=== PATIENT | male | born 1945 | race Caucasian/White ===

== ENCOUNTER 2022-04-25 13:45 | Emergency (ER) | payer MEDICARE, SELFPAY ==
[2022-04-25] VITALS (10 sets, daily range): BP systolic 116–148; BP diastolic 53–97; PULSE 73–86; RESP 18–20; TEMP 37.2; O2SAT 92–97; BMI 37.2; BMI 37.1
--- NOTE | 2022-04-25 14:18 | EXP.UTC ---
Discharge Plan Disposition Patient Disposition: Home, Self-Care Condition: Fair Prescriptions Prescriptions: New cefdinir 300 mg capsule 300 mg PO BID 10 Days Qty: 20 0RF Referrals Follow up/Referrals: Provider,Referral, [Primary Care Provider] - See instructions Clinical Impressions Clinical Impression: Asthma exacerbation in COPD, Bacterial lobar pneumonia Discharge ED Provider: Kali Byrnes [facility] [place] General Chief complaint: Weakness Stated complaint: Fever, cough, dizzy Mode of Arrival: Ambulatory Source of Information: Patient Limitations: No Limitations Time Seen by Provider: 04/25/22 14:18 Description of Symptoms (Recalled from Triage Doc. by RN): PATIENT C/O COUGH, CONGESTION, HEADACHE, SORE THROAT AND DIZZINESS HEENT Symptoms (Recalled from RN notes): Yes Resp Symptoms (Recalled from RN notes): Yes Skin Symptoms (Recalled from RN notes): No MS Symptoms (Recalled from RN notes): No Functional Status (Recalled from RN notes): WNL History of Present Illness Provider Complaint: Patient states that he has been sick for 2 weeks and states that he hasnt been out of the bed States that he got up a few days ago and fell and was unable to get back up so his son had to come and help him up States that he hasnt been eating but has been drinking States that his head has been thumping and he just does not feel well States that she started to bring him to the hospital a few days ago but didnt and today he was still weak, having cough, headache, dizzy and not feeling well Related Data Previous Rx's Medication Instructions Recorded cefdinir 300 mg capsule 300 mg PO BID 10 days #20 caps 04/25/22 Allergies Allergy/AdvReac Type Severity Reaction Status Date / Time No Known Allergies Allergy Verified 04/25/22 14:17 Worker's Comp Is this a Worker's Comp case?: No [facility] Disclaimer: The information contained in this section may have been updated after the patient was seen, as this information can be updated by other users. Medical History (Updated 04/25/22 @ 17:49 by Kali Byrnes MD) Diabetes mellitus, type 2 Hyperlipidemia Hypertension Migraine Surgical History (Updated 04/25/22 @ 14:16 by Alicia Krause RN) History of tonsillectomy History of tympanostomy tube placement Total knee replacement status Social History (Updated 04/25/22 @ 17:51 by Kali Byrnes MD) Smoking Status: Unknown if ever smoked alcohol intake: never current occupational status: other Travel in the last 8 weeks: None ROS Obtained: Yes All systems reviewed & no additional complaints except as documented and Yes Systems reviewed as appropriate & no additional complaints except as documented Constitutional Constitutional: Reports system reviewed and no additional complaints, except as documented, Reports as per HPI, Reports fever(s), Reports headache(s), Reports poor appetite and Reports weakness ENT Ears, Nose, Mouth, and Throat: Reports system reviewed and no additional complaints, except as documented, Reports as per HPI, Reports dizziness and Reports headache(s) Cardiovascular Cardiovascular: Reports system reviewed and no additional complaints, except as documented, Reports as per HPI and Denies chest pain Respiratory Respiratory: Reports system reviewed and no additional complaints, except as documented, Reports as per HPI, Reports shortness of breath, Reports chest congestion (at times will cough up mucous) and Reports cough Neurologic Neurologic: Reports system reviewed and no additional complaints, except as documented, Reports as per HPI, Reports dizziness, Reports headache(s) and Reports weakness Physical Exam General General appearance: alert and in no apparent distress Expanded ENT Exam Nose exam: Present other (reports yellow mucous from his nose) Respiratory Respiratory exam: Present wheezes; Absent respiratory distress Cardiovascular Cardiovascular exam: Present regular rate a
--- NOTE | 2022-04-25 14:26 | XR_ITS ---
FINAL REPORT CLINICAL HISTORY: cough/congestion FINDINGS: TWO-VIEW CHEST The heart size is normal. The mediastinum is normal. There are bilateral pulmonary opacities consistent with bilateral pneumonia. There are moderate degenerative changes of the thoracic spine. There is no pneumothorax. IMPRESSION: Bilateral pneumonia. Reviewed, Interpreted and Dictated by Jordan Barrera III, MD Transcribed by Norma Poole Authenticated and [facility]
[2022-04-25 14:27] LABS: UTC Strep Screen (Rapid) Negative (Negative)
[2022-04-25 14:28] LABS: UTC Influenza A Antigen Negative (Negative); UTC Influenza B Antigen Negative (Negative)
--- NOTE | 2022-04-25 14:40 | PC.NURSE ---
pt sent to ER from [facility]
--- NOTE | 2022-04-25 14:59 | ECG_ITS ---
APPROVED REPORT Exam: Resting ECG HR:79 bpm ECG Measurements Heart Rate 79 AXES WA 180 P 65 QRSd 101 QRS 65 QT 393 T 18 QTc 428 Conclusion SINUS RHYTHM NORMAL ECG UNCONFIRMED REPORT Electronically signed by : Manpreet Cancino MD 04/27/2022 08:54:41
[2022-04-25 15:26] LABS: Chloride 101 mmol/L (98-107); Potassium 3.4 mmoL/L (3.5-5.1); Sodium 136 mmol/L (136-145)
[2022-04-25 15:28] LABS: Alanine Aminotransferase 24 U/L (12-78); Aspartate Amino Transferase 35 U/L (17-59); Blood Urea Nitrogen 18 mg/dl (9-20); Creatinine Clearance Estimated 88 mL/min (50-200); Estimated Glomerular Filt Rate 65 ml/min (>60); GFR (African American) 79 ML/MIN (>60)
[2022-04-25 15:29] LABS: Albumin/Globulin Ratio 1.1 (1.1-1.8); Alkaline Phosphatase 94 U/L (38-126); Anion Gap 16.4 mEq/L (5-15); Bilirubin,Total 0.8 mg/dl (0.2-1.3); Carbon Dioxide 22 mmol/L (22.0-30.0); Globulin 3.5 g/dL (1.3-3.2); Glucose 140 mg/dl (74-100); Total Protein,Serum 7.5 g/dl (6.3-8.2)
[2022-04-25 15:39] LABS: Basophils # 0.1 K/mm3 (0-0.2); Basophils % 0.7 % (0.1-2.0); Eosinophils # 0.1 K/mm3 (0.0-0.4); Eosinophils % 0.4 % (0.1-12.0); Hematocrit 43.7 % (42.0-52.0); Hemoglobin 14.4 g/dL (14.1-18.0); Lymphocytes # 0.8 K/mm3 (0.7-4.5); Lymphocytes % 5.7 % (10-50); Mean Corpuscular HGB Conc 32.8 g/dL (31.8-35.4); Mean Corpuscular Hemoglobin 30.1 pg (27.0-31.2); Mean Corpuscular Volume 91.7 fl (80-94); Mean Platelet Volume 9.5 fl (7.4-10.4); Monocytes # 0.6 K/mm3 (0.1-1.0); Monocytes % 4.3 % (1.7-9.3); Neutrophils # 12.8 K/mm3 (1.8-7.8); Platelet Count 212 K/mm3 (142-424); Red Blood Count 4.77 M/mm3 (4.60-6.20); Red Cell Distribution Width 15.2 % (11.5-17.5); White Blood Count 14.4 K/mm3 (4.8-10.8)
--- NOTE | 2022-04-25 15:40 | HMH.EDGENADL ---
Discharge Plan Disposition Patient Disposition: Home, Self-Care Condition: Fair Prescriptions Prescriptions: New cefdinir 300 mg capsule 300 mg PO BID 10 Days Qty: 20 0RF Referrals Follow up/Referrals: Provider,MD Humberto [Primary Care Provider] - See instructions Clinical Impressions Clinical Impression: Asthma exacerbation in COPD, Bacterial lobar pneumonia Discharge ED Provider: Kali Byrnes General Adult HPI General Chief complaint: Weakness Stated complaint: Fever, cough, dizzy Time Seen by Provider: 04/25/22 14:18 Mode of Arrival: Ambulatory Source of Information: Patient Limitations: No Limitations Description of Symptoms (Recalled from ER Triage Doc. by RN): c/o fever, PELAEZ, fell a couple times over the last two weeks due to weakness, denies hitting his head or other injuries. History of Present Illness HPI narrative: This is a 76-year-old male with history of COPD, CAD, hypertension, GIBSON who is presenting with shortness of breath. Patient states that shortness of breath been progressive over the past 2 weeks. He has had cough productive of yellow sputum over the past 2 days and associated wheezing that started today, so he came to the ED for further evaluation. Today he also had a fever of 101.6 ?F measured at home. Initially went to urgent care at [facility], but was transferred over to the ED due to further need for work-up. Patient denies chest pain, nausea, vomiting, PND, orthopnea, lower extremity swelling, abdominal pain, back pain, flank pain, urinary or bowel symptoms. He also has no neurologic deficits. Shortness of breath is exertional and worsening is coughing. He has not noticed anything that makes it better, but is on CPAP at home while sleeping and that has not seemed to help. Related Data Previous Rx's Medication Instructions Recorded cefdinir 300 mg capsule 300 mg PO BID 10 days #20 caps 04/25/22 Allergies Allergy/AdvReac Type Severity Reaction Status Date / Time No Known Allergies Allergy Verified 04/25/22 14:17 [facility] Disclaimer: The information contained in this section may have been updated after the patient was seen, as this information can be updated by other users. Medical History (Updated 04/25/22 @ 17:49 by Kali Byrnes MD) Diabetes mellitus, type 2 Hyperlipidemia Hypertension Migraine Surgical History (Updated 04/25/22 @ 14:16 by Alicia Krause RN) History of tonsillectomy History of tympanostomy tube placement Total knee replacement status Social History (Updated 04/25/22 @ 14:17 by Alicia Krause RN) Smoking Status: Unknown if ever smoked alcohol intake: never current occupational status: other Travel in the last 8 weeks: None ROS Obtained: Yes All systems reviewed & no additional complaints except as documented Physical Exam General General appearance: alert and in no apparent distress Head Head exam: atraumatic, normocephalic and normal inspection Eye Eye exam: Present normal appearance, PERRL and EOMI ENT ENT exam: Present normal exam, normal oropharynx, mucous membranes moist, TM's normal bilaterally and normal external ear exam Neck Neck exam: Present normal inspection, full ROM and trachea midline; Absent meningismus or lymphadenopathy Chest Chest inspection: Present normal inspection and symmetric chest wall rise; Absent tenderness Respiratory Respiratory exam: Present wheezes (Right worse than left), accessory muscle use and prolonged expiratory phase; Absent respiratory distress or stridor Cardiovascular Cardiovascular exam: Present regular rate and normal rhythm; Absent JVD Abdominal Exam Abdominal exam: Present soft and normal bowel sounds; Absent distention, tenderness or guarding Extremities Exam Extremities exam: Present normal inspection, full ROM and normal capillary refill; Absent tenderness, edema or calf tenderness Back Exam Back exam: Present normal inspection; Absent tenderness
[2022-04-25 15:42] LABS: MANUAL DIFFERENTIAL MANUAL DIFFERENTIAL (MANUAL DIFF)
--- NOTE | 2022-04-25 16:50 | PC.NURSE ---
MARJAN PENN at
[2022-04-25 17:36] LABS: Lymphocytes % 10 % (10-50); Monocytes % 2 % (2-9); Neutrophils % 88 % (42-76); Platelet Estimate Normal; RBC Morphology Normal; Total Cells Counted 100
== END 2022-04-25 18:06 | disposition home or self-care (01) ==
LOC: UTC 14:35 → ER 14:40
PROVIDERS: Nurse Practitioner; Emergency Provider Emergency Medicine
DX: J18.9 Pneumonia, unspecified organism (principal); J44.1 Chronic obstructive pulmonary disease with (acute) exacerbation; R42 Dizziness and giddiness; R50.9 Fever, unspecified; R53.1 Weakness; D72.829 Elevated white blood cell count, unspecified; I10 Essential (primary) hypertension; I25.10 Atherosclerotic heart disease of native coronary artery without angina pectoris; E78.5 Hyperlipidemia, unspecified; E11.9 Type 2 diabetes mellitus without complications; G47.33 Obstructive sleep apnea (adult) (pediatric); G43.909 Migraine, unspecified, not intractable, without status migrainosus; Z88.8 Allergy status to other drugs, medicaments and biological substances; Z96.659 Presence of unspecified artificial knee joint
CPT/HCPCS: 71046; 80053; 85007; 85025; 87804; 87880; 93005; 96374; 96375; 99285; J0696

== ENCOUNTER 2023-07-24 18:32 | Emergency (ER) | payer MEDICARE, SELFPAY ==
[2023-07-24 19:02] VITALS: BP 146/82; PULSE 93; RESP 19; TEMP 36.6; O2SAT 95; BMI 38.2
[2023-07-24 19:42] VITALS: BP 150/94; PULSE 67; O2SAT 95
--- NOTE | 2023-07-24 19:55 | HMH.EDGENADL ---
Discharge Plan Disposition Patient Disposition: Home, Self-Care Prescriptions Prescriptions: No Action cefdinir 300 mg capsule 300 mg PO BID 10 Days Qty: 20 0RF Referrals Follow up/Referrals: Corrie Pulido MD [Primary Care Provider] - See instructions Activity Restrictions/Add. Instructions Additional Instructions/Restrictions: Follow-up with your family doctor guarding this visit to the emergency department and repeat labs to look at your hydration status. Compression stockings can help with the swelling in your legs. Call your family doctor to establish care for this visit to the emergency department and schedule follow-up within 48 hours to ensure improvement. If you have any worsening of your condition or any other concerning signs or symptoms, return to the emergency department or your primary care doctor for further evaluation. Clinical Impressions Clinical Impression: Leg swelling Discharge ED Provider: Kali Byrnes General Adult HPI General Chief complaint: Extremity Injury, Lower Stated complaint: RT leg swollen, painful Time Seen by Provider: 07/24/23 19:06 Mode of Arrival: Ambulatory Source of Information: Patient and Spouse Limitations: No Limitations Description of Symptoms (Recalled from ER Triage Doc. by RN): pt presents to ED with c/o right leg pain and swelling. symptoms ongoing for the past 3 days. History of Present Illness HPI narrative: 77-year-old male history of TB with bone involvement status post debridement of left knee and knee replacement currently with latent TB, diabetes, CAD, hypertension, hyperlipidemia presenting with right lower extremity swelling. DVT was in his left leg years ago. Patient states that his right leg has been swollen, tender, red for the past 3 days. Made better with elevation, made worse with ambulation. No history of DVT or PE. No DVT or PE risk factors. No neurologic deficits, but does have neuropathy at baseline. No foot wounds, patient has been checking for these. No fevers or chills, night sweats, chest pain, shortness of breath, or any other concerns. Please note that above description of symptoms, in this electronic medical record under categorization of recalled from ER triage doctor by RN are reflective of an initial nursing assessment, however, is not reflective of my full history and physical exam that was personally taken and clarified. Consequentially, this preceding description of symptoms, which may include the patient's categorized chief complaint in the EMR, do not reflect my personal clinical impression, and the ultimate description of history of present illness and patient stated complaints should be deferred to this section of the note. Unless stated otherwise or congruent with this section of the note, additional signs, symptoms, or incongruence should be interpreted as inaccurate with my clinical impression. Related Data Previous Rx's Medication Instructions Recorded cefdinir 300 mg capsule 300 mg PO BID 10 days #20 caps 04/25/22 Allergies Allergy/AdvReac Type Severity Reaction Status Date / Time No Known Allergies Allergy Verified 04/25/22 14:17 [facility] Disclaimer: The information contained in this section may have been updated after the patient was seen, as this information can be updated by other users. Medical History (Updated 07/24/23 @ 22:12 by Kali Byrnes MD) Migraine Diabetes mellitus, type 2 Hyperlipidemia Hypertension Surgical History (Updated 04/25/22 @ 14:16 by Alicia Krause RN) Total knee replacement status History of tympanostomy tube placement History of tonsillectomy Social History (Updated 04/25/22 @ 17:51 by Kali Byrnes MD) Smoking Status: Former smoker alcohol intake: never current occupational status: other Travel in the last 8 weeks: None ROS Obtained: Yes All systems reviewed & no additional complaints except as documented Physical Exam General General appearance: alert and in no apparent distress Head Head exam: atraumatic and normocephalic Eye Eye exam: Present normal appearance, PERRL and EOMI ENT ENT exam: Present mucous membranes moist Neck Neck exam: Present normal inspection, full ROM and trachea midline Respiratory Respiratory exam: Absent respiratory distress, wheezes, stridor, accessory muscle use or prolonged expiratory phase Cardiovascular Cardiovascular exam: Present normal rhythm Abdominal Exam Abdominal exam: Present soft; Absent distention, tenderness, guarding, rebound or rigidity Extremities Exam Extremities exam: Present full ROM and edema (1+ pitting edema right lower extremity, large as compared to right, they state this is normal for patient to have asymmetric legs. Neurovascularly intact) Neurological Exam Neurological exam: Present alert, oriented X3, CN II-XII intact and normal gait; Absent motor sensory deficit Skin Skin exam: Present warm and dry; Absent diaphoresis or erythema Medical Decision Making Medical Records Medical records reviewed: Yes I reviewed the patient's medical records. Sylvain Inquiry Pt receiving controlled substance: No Sylvain was queried for this patient: No Vital Signs: 07/24/23 19:02 07/24/23 19:42 07/24/23 22:30 Temperature 97.9 F 98.2 F Temperature Source Oral Oral Pulse Rate 67 67 Pulse Rate [Left Radial] 93 H Respiratory Rate 19 17 Blood Pressure 150/94 H 140/77 Blood Pressure [Right Arm] 146/82 H Blood Pressure Mean [Right Arm] 103 Blood Pressure Source Automatic Cuff Blood Pressure Position Sitting 02 Sat by Pulse Oximetry 95 95 Oxygen Delivery Method Room Air Room Air Room Air Lab Data Lab Results 07/24/23 21:15: WBC 8.0, RBC 5.18, Hgb 15.9, Hct 50.1, MCV 96.8 H, MCH 30.7, MCHC 31.7 L, RDW 14.9, Plt Count 173, MPV 9.2, Neut % (Auto) 68.6, Lymph % (Auto) 21.8, [place] % (Auto) 5.8, Eos % (Auto) 3.1, Baso % (Auto) 0.7, Neut # (Auto) 5.5, Lymph # (Auto) 1.8, [place] # (Auto) 0.5, Eos # (Auto) 0.3, Baso # (Auto) 0.1, Sodium 139, Potassium 3.8, Chloride 107, Carbon Dioxide 25, Anion Gap 10.8, BUN 24 H, Creatinine 1.60 H, Estimated Creat Clear 62, Estimated GFR 42 L, Est GFR ( Amer) 51 L, Glucose 195 H, Calcium 9.4, Total Bilirubin 0.3, AST 32, ALT 23, Alkaline Phosphatase 87, NT-Pro-B Natriuret Pep 1060 H, Total Protein 7.0, Albumin 4.2, Globulin 2.8, Albumin/Globulin Ratio 1.5 07/24/23 21:15 07/24/23 21:15 Orders (Tests/Meds): ORDERS Category Date Time Status POCUS Point of Care (ER Only) Stat Exams 07/24/23 19:19 Taken CBC w/Auto Diff [Complete Blood Count Auto Diff] Stat Lab 07/24/23 21:15 Completed CMP [Comprehensive Metabolic Panel] Stat Lab 07/24/23 21:15 Completed NT Pro Brain Natriuretic Pep. Stat Lab 07/24/23 21:15 Completed Medical Decision Narrative: 77-year-old male history of TB with bone involvement status post debridement of left knee and knee replacement currently with latent TB, diabetes, CAD, hypertension, hyperlipidemia presenting with right lower extremity swelling. DVT was in his left leg years ago. Patient states that his right leg has been swollen, tender, red for the past 3 days. Made better with elevation, made worse with ambulation. No history of DVT or PE. No DVT or PE risk factors. No neurologic deficits, but does have neuropathy at baseline. No foot wounds, patient has been checking for these. No fevers or chills, night sweats, chest pain, shortness of breath, or any other concerns. History was obtained via conversation with patient and . On arrival, patient hemodynamically stable, alert, oriented x4, appropriate, GCS 15, moving all extremities spontaneously, pupils equal and reactive to light. Full physical exam performed and significant for right lower extremity swollen, red, 1+ pitting edema as compared to the left which is normal. Per family and patient, this is normal for patient. Unknown how much worse it is than normal. Range of motion intact, bearing weight, neurovascularly intact. Lungs are clear to auscultation, nontachycardic. Differential includes DVT, cellulitis, dependent edema, CHF, among others. Workup independently interpreted and significant for nonactionable CBC or chemistry, patient has stable CKD. BNP mildly elevated. Bedside [id number] ultrasound without concern for right lower extremity DVT. See radiology read for full review of final results. Given patient presentation, workup, history, this most likely represents dependent edema. Is recommended the patient wear compression stockings. Because patient at baseline without signs or symptoms of clinical decompensation, deemed appropriate for discharge. Results were relayed to patient who voiced understanding and were agreeable to outpatient management and follow up. I discussed my clinical impression with patient and answered all questions. At this time, the evidence for any other entities in the differential is insufficient to warrant any further testing or ED observation. This was explained as well. Advisory was given that persistent or worsening symptoms require further evaluation. I confirmed the understanding of this discussion. Procedures Limited Ultrasound Indication:: Limited DVT ultrasound Indication: Limited compression ultrasonography of the right strongly was performed to evaluate for non-compressibility of the deep veins in the patient. The ultrasound was performed with the following indications, as noted in the H&P: Right leg swelling Identified structures: RIGHT or LEFT or BILATERAL common femoral vein, femoral vein, popliteal vein were examined. Findings: Lower Extremity: Right CFV: Good compressibility Right FV: Good compressibility Right Popliteal vein: Good compressibility Impression: Normal right lower extremity DVT scan Images were saved to permanent archive The study was technically adequate CPT: 25339-11-AZ [id number]-YG 86662-76 (complete bilateral study) This study was performed by me, and I personally interpreted all images/videos. Based on my clinical judgement, these images were adequate and did not necessitate further imaging. Critical Care Critical Care Time Critical Care Time: No
--- NOTE | 2023-07-24 20:05 | PC.NURSE ---
Pt moved from chair #12 to room #8, assessed right leg, swelling present, slightly reddened no wamth, + pedal pulses
--- NOTE | 2023-07-24 21:03 | PC.NURSE ---
Rounded on patient no new complaints noted
[2023-07-24 21:24] LABS: Basophils # 0.1 K/mm3 (0-0.2); Basophils % 0.7 % (0.1-2.0); Eosinophils # 0.3 K/mm3 (0.0-0.4); Eosinophils % 3.1 % (0.1-12.0); Hematocrit 50.1 % (42.0-52.0); Hemoglobin 15.9 g/dL (14.1-18.0); Lymphocytes # 1.8 K/mm3 (0.7-4.5); Lymphocytes % 21.8 % (10-50); Mean Corpuscular HGB Conc 31.7 g/dL (31.8-35.4); Mean Corpuscular Hemoglobin 30.7 pg (27.0-31.2); Mean Corpuscular Volume 96.8 fl (80-94); Mean Platelet Volume 9.2 fl (7.4-10.4); Monocytes # 0.5 K/mm3 (0.1-1.0); Monocytes % 5.8 % (1.7-9.3); Neutrophils # 5.5 K/mm3 (1.8-7.8); Neutrophils % 68.6 % (37.0-80.0); Platelet Count 173 K/mm3 (142-424); Red Blood Count 5.18 M/mm3 (4.60-6.20); Red Cell Distribution Width 14.9 % (11.5-17.5)
[2023-07-24 21:31] LABS: Chloride 107 mmol/L (98-107)
[2023-07-24 21:32] LABS: Potassium 3.8 mmoL/L (3.5-5.1); Sodium 139 mmol/L (136-145)
[2023-07-24 21:34] LABS: Alanine Aminotransferase 23 U/L (12-78); Alkaline Phosphatase 87 U/L (38-126); Aspartate Amino Transferase 32 U/L (17-59); Bilirubin,Total 0.3 mg/dl (0.2-1.3); Blood Urea Nitrogen 24 mg/dl (9-20); Creatinine Clearance Estimated 62 mL/min (50-200); Estimated Glomerular Filt Rate 42 ml/min (>60); GFR (African American) 51 ML/MIN (>60)
[2023-07-24 21:35] LABS: Albumin Level 4.2 g/dl (3.5-5.0); Albumin/Globulin Ratio 1.5 (1.1-1.8); Anion Gap 10.8 mEq/L (5-15); Calcium 9.4 mg/dl (8.4-10.2); Carbon Dioxide 25 mmol/L (22.0-30.0); Globulin 2.8 g/dL (1.3-3.2); Glucose 195 mg/dl (74-100)
[2023-07-24 22:07] LABS: NT Pro Brain Natriuretic Pep. 1060 pg/mL (0-450)
[2023-07-24 22:30] VITALS: BP 140/77; PULSE 67; RESP 17; TEMP 36.8; O2SAT 95
== END 2023-07-24 22:31 | disposition home or self-care (01) ==
PROVIDERS: Emergency Provider Emergency Medicine; PCP Internal Medicine
DX: M79.604 Pain in right leg (principal); R22.41 Localized swelling, mass and lump, right lower limb; I11.9 Hypertensive heart disease without heart failure; I25.10 Atherosclerotic heart disease of native coronary artery without angina pectoris; E78.5 Hyperlipidemia, unspecified; E11.9 Type 2 diabetes mellitus without complications; Z87.891 Personal history of nicotine dependence
CPT/HCPCS: 80053; 83880; 85025; 99284

== ENCOUNTER 2024-09-24 10:14 | Emergency (ER) | payer MEDICARE, SELFPAY ==
[2024-09-24] VITALS (10 sets, daily range): BP systolic 102–165; BP diastolic 79–103; PULSE 73–114; RESP 14–19; TEMP 36.9–37.1; O2SAT 92–97; BMI 32.5
--- NOTE | 2024-09-24 10:26 | CT_ITS ---
FINAL REPORT TECHNIQUE: Axial CT images were performed through the head. Coronal reformatted images were submitted. This study was performed with techniques to keep radiation doses as low as reasonably achievable (ALARA). Individualized dose reduction techniques using automated exposure control or adjustment of mA and/or kV according to the patient's size were employed. 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 Confluent decreased attenuation is noted in the deep white matter, probably due to chronic ischemia. There is no evidence of hemorrhage. There is no mass or edema identified. There is no abnormal extra-axial fluid seen. There is opacification of the mastoid air cells bilaterally consistent with chronic bilateral mastoiditis. Mild changes of chronic ethmoid sinusitis are noted. IMPRESSION: Chronic changes without acute intracranial process. Reviewed, Interpreted and Dictated by Graham Alfonso MD Transcribed by Lauren Kong Authenticated and [facility]
--- NOTE | 2024-09-24 10:26 | CT_ITS ---
FINAL REPORT TECHNIQUE: The patient was injected with IV contrast. Axial images were obtained through the chest in a PE protocol. 3-D reconstruction images were also performed. Individualized dose reduction techniques using automated exposure control or adjustment of the MA and/or KV according to patient's size were employed. CLINICAL HISTORY: person vs zero turn mower L side pain COMPARISON: Prior CT of the chest 09/21/2024 FINDINGS: Mediastinal vasculature is adequately opacified. No pulmonary artery filling defects are identified to suggest PE. There is no aortic dissection. There is no axillary adenopathy. There is no hilar or mediastinal adenopathy. The heart size is normal. There is no pericardial or pleural effusion. Limited images of the upper abdomen are unremarkable. No suspicious infiltrate or nodule is identified. Chronic changes are present in the lung bases bilaterally. IMPRESSION: No pulmonary embolus or dissection. Reviewed, Interpreted and Dictated by Graham Alfonso MD Transcribed by Alma Delia Stanley Authenticated and [facility]
--- NOTE | 2024-09-24 10:26 | CT_ITS ---
FINAL REPORT TECHNIQUE: Pre-and postcontrast images of the abdomen and pelvis were performed by computed tomography. Extensive 3-D reconstruction images were performed. A CTA was performed. This study was performed with techniques to keep radiation doses as low as reasonably achievable (ALARA). Individualized dose reduction techniques using automated exposure control or adjustment of mA and/or kV according to the patient's size were employed. 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 Precontrast images demonstrate no evidence of nephrolithiasis. The kidneys are unremarkable. No adrenal masses are identified. The liver, spleen and pancreas are unremarkable. Small gallstones are present in the dependent portion of the gallbladder. Bilateral adrenal nodules are noted, the largest on the left measuring 3.1 cm in size and best seen on image #142 of series 7. Bladder wall thickening is present with minimal stranding at the margins of the bladder, that may represent a nonspecific cystitis. The appendix is not visualized. No free fluid is noted in the abdomen or pelvis. Note is made of bilateral L5 pars defects, with grade 1 spondylolisthesis of L5 on S1 producing severe bilateral L5-S1 neural foraminal narrowing. CTA: The abdominal aorta is proper caliber. The SMA, celiac axis, and PRADEEP are patent. There is no significant stenosis or calcification. The single renal arteries are patent bilaterally. IMPRESSION: No significant vascular abnormality in the abdomen or pelvis. Small gallstones are present in the dependent portion of the gallbladder. Bilateral adrenal nodules as described above, favor adenomas. Bladder wall thickening is present with minimal stranding at the margins of the bladder, possibly a nonspecific cystitis. Reviewed, Interpreted and Dictated by Graham Alfonso MD Transcribed by Alma Delia Stanley Authenticated and [facility]
--- NOTE | 2024-09-24 10:26 | CT_ITS ---
FINAL REPORT TECHNIQUE: Axial images were obtained of the cervical spine by computed tomography. Coronal and sagittal reconstruction process performed. This study was performed with techniques to keep radiation doses as low as reasonably achievable (ALARA). Individualized dose reduction techniques using automated exposure control or adjustment of mA and/or kV according to the patient''s size were employed. CLINICAL HISTORY: person vs zero turn mower COMPARISON: None FINDINGS: There is abnormal loss of height throughout the cervical discs, more evident at C5-6 and C6-7. There is no malalignment. C2-3: Unremarkable. C3-4: Midline disc protrusion. Mild spinal canal compromise. Neuroforamina are adequately patent. C4-5: Mild endplate hypertrophy. Mild to moderate compromise right neuroforamen. C5-6: Moderate endplate hypertrophy. Moderate bilateral neuroforaminal narrowing. C6-7: Moderate endplate hypertrophy. Moderate bilateral neuroforaminal narrowing. C7-T1: Unremarkable. IMPRESSION: Endplate hypertrophic changes at C5-6 and C6-7 with bilateral neuroforaminal narrowing. Midline disc protrusion at C3-4. Reviewed, Interpreted and Dictated by Graham Alfonso MD Transcribed by Lauren Kong Authenticated and [facility]
--- NOTE | 2024-09-24 10:45 | HMH.EDGENADL ---
Discharge Plan Disposition Patient Disposition: Left Against Medical Advice Prescriptions Prescriptions: No Action cefdinir 300 mg capsule 300 mg PO BID 10 Days Qty: 20 0RF Referrals Follow up/Referrals: Corrie Pulido MD [Primary Care Provider, Medical] - See instructions Activity Restrictions/Add. Instructions Additional Instructions/Restrictions: At this time you are signing out AGAINST MEDICAL ADVICE understanding that if you go home and fall under blood thinners you could seriously injure yourself and bleed into your brain which could result in . Please use your walker at all times and please be thoughtful about how you are moving so you do not fall. We dissected the skin tear on your right arm every day please unwrap it and put a thin layer of Vaseline on it and wrap it back up until it heals. It is okay to wash it with water but do not submerge in water. At any time if you want return to the emergency department where we can see if we can place you in a rehab facility or long-term facility so you do not keep falling and hurt yourself please feel free to come back otherwise please follow-up with your family doctor within 1 week to see if they can offer resources to help you at home. Clinical Impressions Clinical Impression: Frequent falls, Rib pain, Forehead laceration, Declining functional status, Skin tear of upper extremity Instructions Patient Instructions: DI for Low Back Pain Print Language Print Language: [place] Discharge ED Provider: Remy Petit General Adult HPI General Chief complaint: Back Pain/Injury Stated complaint: AO- 09/22 Fall- Pain in Left Ribs Time Seen by Provider: 09/24/24 10:17 Mode of Arrival: Ambulatory Source of Information: Patient Description of Symptoms (Recalled from ER Triage Doc. by RN): patient states he was standing behind his son who was on lawnmower when son put mower in gear and bumped him knocking him down landing on concrete. he denies hitting his head. has pain in his left mid back, on blood thinner unknown which one History of Present Illness HPI narrative: Patient is a 78-year-old male on anticoagulation for unknown reasons unknown anticoagulant presents emergency department for evaluation of trauma. Patient was hit by a 0 turn mower and his left side falling to the ground, no true loss of consciousness. This happened approximately 48 hours ago. Patient is complaining of pain over his left thoracic cage left flank. No extremity pain or hip pain reported. Please note that above description of symptoms, in this electronic medical record under categorization of recalled from ER triage doctor by RN are reflective of an initial nursing assessment, however, is not reflective of my full history and physical exam that was personally taken and clarified. Consequentially, this preceding description of symptoms, which may include the patient's categorized chief complaint in the EMR, do not reflect my personal clinical impression, and the ultimate description of history of present illness and patient stated complaints should be deferred to this section of the note. Unless stated otherwise or congruent with this section of the note, additional signs, symptoms, or incongruence should be interpreted as inaccurate with my clinical impression. Related Data Previous Rx's ?Medication ?Instructions ?Recorded cefdinir 300 mg capsule 300 mg PO BID 10 days #20 caps 04/25/22 Allergies Allergy/AdvReac Type Severity Reaction Status Date / Time No Known Allergies Allergy Verified 04/25/22 14:17 [facility] Disclaimer: The information contained in this section may have been updated after the patient was seen, as this information can be updated by other users. Medical History (Updated 09/24/24 @ 15:20 by Remy Petit MD) Migraine Diabetes mellitus, type 2 Hyperlipidemia Hypertension Surgical History (Updated 04/25/22 @ 14:16 by Alicia Krause RN) Total knee replacement status History of tympanostomy tube placement History of tonsillectomy Social History (Updated 04/25/22 @ 17:51 by Kali Byrnes MD) Smoking Status: Never smoker alcohol intake: never current occupational status: other Travel in the last 8 weeks?: None Have you lived/traveled outside US in past 30 days?: No Contact w/someone who lives/traveled outside US past 30 days?: No Exposure to someone with infectious disease in past 14 days?: No Do you have a fever (greater than 100.4 F or 38 C)?: No Have you tested positive for COVID-19?: No Exposed to someone with COVID-19 in past 14 days?: No Do you have a sore throat?: No Do you have a cough?: No Do you have any weakness?: No Do you have any diarrhea?: No Are you experiencing any unusual bleeding?: No Do you have any muscle aches/pain?: Yes Do you have any abdominal pain?: No Are you experiencing loss of taste or smell?: No ROS Obtained: Yes Systems reviewed as appropriate & no additional complaints except as documented Physical Exam General General appearance: alert and in no apparent distress Head Head exam: atraumatic and normocephalic Eye Eye exam: Present PERRL and EOMI ENT ENT exam: Present mucous membranes moist Neck Neck exam: Present normal inspection and full ROM; Absent tenderness Chest Chest inspection: Present normal inspection, symmetric chest wall rise and tenderness (Left lateral thoracic cage) Respiratory Respiratory exam: Present normal lung sounds bilaterally; Absent respiratory distress Cardiovascular Cardiovascular exam: Present regular rate and normal rhythm Abdominal Exam Abdominal exam: Present soft and tenderness (Left flank) Extremities Exam Extremities exam: Present normal inspection and full ROM; Absent tenderness Neurological Exam Neurological exam: Present alert and CN II-XII intact; Absent motor sensory deficit Psychiatric Psychiatric exam: Present normal affect Skin Skin exam: Present warm and dry Medical Decision Making Medical Records Screening: Per USPSTF and CDC recommendations, given the prevalence of disease in our region, it is our hospital?s policy to screen for HIV and viral Hepatitis for all patients aged 18 and over and those with ongoing risk factors. Sylvain Inquiry Pt receiving controlled substance: No Vital Signs: 09/24/24 10:32 09/24/24 10:55 09/24/24 11:46 Temperature 98.7 F Temperature Source Oral Pulse Rate 93 H 98 H Pulse Rate [Right Radial] 88 Respiratory Rate 19 14 Blood Pressure 165/98 H 102/79 L Blood Pressure [Right Arm] 165/98 H Blood Pressure Mean [Right Arm] 120 Blood Pressure Source Blood Pressure Source [Right Arm] Automatic Cuff Blood Pressure Position [Right Arm] Supine 02 Sat by Pulse Oximetry 94 L 95 96 Oxygen Delivery Method Room Air Room Air 09/24/24 12:35 09/24/24 13:01 09/24/24 13:31 Temperature Temperature Source Pulse Rate 114 H 103 H 96 H Pulse Rate [Right Radial] Respiratory Rate Blood Pressure 157/101 H 156/98 H 126/91 H Blood Pressure [Right Arm] Blood Pressure Mean [Right Arm] Blood Pressure Source Blood Pressure Source [Right Arm] Blood Pressure Position [Right Arm] 02 Sat by Pulse Oximetry 97 92 L 93 L Oxygen Delivery Method Room Air Room Air Room Air 09/24/24 14:01 09/24/24 14:08 09/24/24 14:30 Temperature 98.4 F Temperature Source Oral Pulse Rate 104 H 73 102 H Pulse Rate [Right Radial] Respiratory Rate 18 Blood Pressure 151/103 H 140/94 H 147/93 H Blood Pressure [Right Arm] Blood Pressure Mean [Right Arm] Blood Pressure Source Automatic Cuff Blood Pressure Source [Right Arm] Blood Pressure Position [Right Arm] 02 Sat by Pulse Oximetry 95 94 L Oxygen Delivery Method Room Air Room Air Room Air 09/24/24 14:39 Temperature Temperature Source Pulse Rate 103 H Pulse Rate [Right Radial] Respiratory Rate Blood Pressure 158/97 H Blood Pressure [Right Arm] Blood Pressure Mean [Right Arm] Blood Pressure Source Blood Pressure Source [Right Arm] Blood Pressure Position [Right Arm] 02 Sat by Pulse Oximetry 97 Oxygen Delivery Method Room Air Lab Data Lab Results 09/24/24 10:40: WBC 12.7 H, RBC 5.50, Hgb 15.0, Hct 48.1, MCV 87.5, MCH 27.3, MCHC 31.2 L, RDW 15.8, Plt Count 194, MPV 10.8 H, Neut % (Auto) 92.1 H, Lymph % (Auto) 5.0 L, Mercer % (Auto) 2.1, Eos % (Auto) 0.2, Baso % (Auto) 0.2, Neut # (Auto) 11.7 H, Lymph # (Auto) 0.6 L, Mercer # (Auto) 0.3, Eos # (Auto) 0.0, Baso # (Auto) 0.0, PT 11.7, INR 1.06, Sodium 143, Potassium 4.2, Chloride 107, Carbon Dioxide 30, Anion Gap 10.2, BUN 22 H, Creatinine 1.10, Estimated Creat Clear 77, Estimated GFR 65, Est GFR ( Amer) 78, Glucose 210 H, Calcium 10.0, Total Bilirubin 0.6, AST 25, ALT 21, Alkaline Phosphatase 115, Total Protein 7.6, Albumin 4.3, Globulin 3.3 H, Albumin/Globulin Ratio 1.3, HIV Ag/Ab Combo Qual Negative 09/24/24 10:40 09/24/24 10:40 Orders (Tests/Meds): ED MEDICATIONS Discontinued Medications Generic Name Dose Route Start Last Admin Trade Name Freq PRN Reason Stop Dose Admin Acetaminophen 1,000 mg 09/24/24 10:28 09/24/24 11:09 Acetaminophen 500mg Tab PO 09/24/24 10:29 1,000 mg ONCE ONE Administration Bacitracin 1 each 09/24/24 13:53 09/24/24 13:56 Bacitracin Oint 0.9gm Udp TP 09/24/24 13:54 1 each ONCE ONE Administration Iopamidol 80 ml 09/24/24 11:06 09/24/24 11:07 Iopamidol-370 (76%);100ml Bottle IV 09/24/24 11:07 80 ml ONCE ONE Administration Lidocaine 1 each 09/24/24 10:28 09/24/24 11:09 Lidocaine 5% Transdermal Patch TD 09/24/24 10:29 1 each ONCE ONE Administration Methocarbamol 1,000 mg 09/24/24 10:32 09/24/24 11:09 Methocarbamol 500mg Tablet PO 09/24/24 10:33 1,000 mg ONCE ONE Administration Morphine Sulfate 4 mg 09/24/24 10:28 09/24/24 11:09 Morphine 4mg/Ml Syringe IV 09/24/24 10:29 4 mg ONCE ONE Administration Oxycodone HCl 5 mg 09/24/24 11:44 09/24/24 11:50 Oxycodone 5mg Immediate Release Tablet PO 09/24/24 11:45 5 mg ONCE ONE Administration Sodium Chloride 10 ml 09/24/24 11:06 09/24/24 11:07 Sodium Chloride 0.9% 10ml Syr (Rad Only) IV 09/24/24 11:07 10 ml ONCE ONE Administration Sodium Chloride 50 ml 09/24/24 11:06 09/24/24 11:07 0.9 % Sodium Chloride 50 Ml Vial IV 09/24/24 11:07 50 ml ONCE ONE Administration Tetanus/Reduced Diphtheria/Acell Pertussis 0.5 ml 09/24/24 12:46 09/24/24 13:16 Tet/Diphth/Pert-Adult 0.5ml Syringe IM 09/24/24 12:47 0.5 ml .ONCE ONE Administration ORDERS Category Date Time Status CT angio abd/pel - GI Bleed Stat Cat Scan 09/24/24 10:[address] angio chest - dissection Stat Cat Scan 09/24/24 10:[address] cervical spine wo con Stat Cat Scan 09/24/24 10:[address] cervical spine wo con Stat Cat Scan 09/24/24 12:[address] facial bones wo con Stat Cat Scan 09/24/24 12:[address] head/brain wo con Stat Cat Scan 09/24/24 10:[address] head/brain wo con Stat Cat Scan 09/24/24 12:36 Completed CBC w/Auto Diff [Complete Blood Count Auto Diff] Stat Lab 09/24/24 10:40 Completed CMP [Comprehensive Metabolic Panel] Stat Lab 09/24/24 10:40 Completed HIV Combo Stat Lab 09/24/24 10:40 Completed PT INR [Prothrombin Time INR] Stat Lab 09/24/24 10:40 Completed UA [Urinalysis and Microscopic] Stat Lab 09/24/24 15:04 Received Medical Decision Narrative: In summary patient is 78-year-old male past medical history described above who presents emergency department for evaluation of traumatic injury sustained being hit by a 0 turn mower. Patient is hemodynamically stable nontoxic-appearing upon arrival, afebrile. Patient has tenderness over his left thoracic cage and left flank. Differential includes rib fractures, internal bleeding, among others. In totality workup will be conducted with hematologic labs, CT imaging of the head, neck, thorax, abdomen pelvis. Initial inventions include multimodal pain control. Initial hematologic labs reviewed by me, slight leukocytosis 12.7, INR 1.06, no CARMEN or critical electrolyte abnormality. Slight hyperglycemia without elevated anion gap no further intervention from that standpoint. Original noncontrasted CT scan of the head reviewed by me, no large intra-axial hemorrhage. Patient Requesting to be transferred between the bed and the chair for comfort and when he was in the chair he was instructed to stay seated in the chair however he stood up against this device and fell forward striking his head on tile without loss of consciousness. He has a wound over his right forehead and right arm which pressure was applied over the wound and will be transiently wrapped, Tdap will now be updated, subsequent CT imaging will now be obtained repeat of the head, C-spine, face. After striking his head patient is slightly confused differential includes concussion versus intracranial hemorrhage. In totality CT imaging has bladder wall thickening with minimal stranding possibly nonspecific cystitis, no acute traumatic pathology otherwise. Upon repeat evaluation patient was not confused any longer. In the interval he developed a small curvilinear scalp laceration over his right periorbital area that was cleaned and glued with hemostasis by AKI. I think he will benefit from physical therapy evaluation for safe transfer given his frequent falls and possible placement. I contacted case management and physical therapy however prior to their evaluation patient was expressing that he does not want placed, does not need help with rehab and wishes to go home. I spoke with patient and son at bedside in no uncertain terms that he is on anticoagulation and given his history of frequent falls he would benefit from safe transfer because if he falls and strikes his head or something else incorrectly he can suffer devastating [employer]ATING [employer]ILATING [employer] injury resulting in debility and possibly . Patient is able to understand his decision appreciate his decision reason through his decision making express choice thereby having capacity GCS 15 alert and oriented x 3. Given this patient signed out against medical vice and was instructed to return to the emergency department should he want us attempt to help him at any time. Critical Care Critical Care Time Critical Care Time: No
[2024-09-24 10:50] LABS: Basophils % 0.2 % (0.1-2.0); Eosinophils % 0.2 % (0.1-12.0); Hematocrit 48.1 % (42.0-52.0); Immature Granulocytes # 0.05 10^3uL; Immature Granulocytes % 0.4 %; Lymphocytes # 0.6 K/mm3 (0.7-4.5); Mean Corpuscular HGB Conc 31.2 g/dL (31.8-35.4); Mean Corpuscular Hemoglobin 27.3 pg (27.0-31.2); Mean Corpuscular Volume 87.5 fl (80-94); Mean Platelet Volume 10.8 fl (7.4-10.4); Monocytes # 0.3 K/mm3 (0.1-1.0); Monocytes % 2.1 % (1.7-9.3); Neutrophils # 11.7 K/mm3 (1.8-7.8); Neutrophils % 92.1 % (37.0-80.0); Nucleated Red Blood Cells # 0 10^3/uL; Nucleated Red Blood Cells % 0 %; Platelet Count 194 K/mm3 (142-424); Red Cell Distribution Width 15.8 % (11.5-17.5); Red Cell Distribution Width-SD 50.5 fL; White Blood Count 12.7 K/mm3 (4.8-10.8)
--- NOTE | 2024-09-24 11:00 | PC.NURSE ---
at this patient called out to use the bathroom, i provided a urinal he stood at bedside and urinated, placed back in bed, call light in reach. patient is understandable to use call light.
[2024-09-24 11:03] LABS: Albumin Level 4.3 g/dl (3.5-5.0); Chloride 107 mmol/L (98-107); Potassium 4.2 mmoL/L (3.5-5.1); Sodium 143 mmol/L (136-145)
[2024-09-24 11:06] LABS: Alanine Aminotransferase 21 U/L (12-78); Albumin/Globulin Ratio 1.3 (1.1-1.8); Alkaline Phosphatase 115 U/L (38-126); Anion Gap 10.2 mEq/L (5-15); Aspartate Amino Transferase 25 U/L (17-59); Bilirubin,Total 0.6 mg/dl (0.2-1.3); Blood Urea Nitrogen 22 mg/dl (9-20); Carbon Dioxide 30 mmol/L (22.0-30.0); Creatinine Clearance Estimated 77 mL/min (50-200); Estimated Glomerular Filt Rate 65 ml/min (>60); GFR (African American) 78 ML/MIN (>60); Globulin 3.3 g/dL (1.3-3.2); Glucose 210 mg/dl (74-100); INR 1.06 (0.9-1.1); Prothrombin Time 11.7 seconds (10.1-12.5); Total Protein,Serum 7.6 g/dl (6.3-8.2)
[2024-09-24] MEDS: SODIUM CHLORIDE 0.9% 10ML SYR (RAD ONLY) 10 ML IV (11:07)
[2024-09-24] MEDS: 0.9 % SODIUM CHLORIDE 50 ML VIAL IV (11:07)
[2024-09-24] MEDS: IOPAMIDOL-370 (76%);100ML BOTTLE 80 ML IV (11:07)
[2024-09-24] MEDS: METHOCARBAMOL 500MG TABLET 1000 MG PO (11:09)
[2024-09-24] MEDS: MORPHINE 4MG/ML SYRINGE 4 MG IV (11:09)
[2024-09-24] MEDS: LIDOCAINE 5% TRANSDERMAL PATCH 1 EACH TD (11:09)
[2024-09-24] MEDS: ACETAMINOPHEN 500MG TAB 1000 MG PO (11:09)
--- NOTE | 2024-09-24 11:30 | PC.NURSE ---
patient called out again to use restroom, tech and nurse assisted patient to bathroom for bowel movement. patient taken back to room placed in bed, call light in reach
[2024-09-24] MEDS: OXYCODONE 5MG IMMEDIATE RELEASE TABLET 5 MG PO (11:50)
--- NOTE | 2024-09-24 12:00 | PC.NURSE ---
patient called out wanting to sit in the chair at bedside, me and other staff member placed patient in chair at bedside. call light reach wheels locked on wheelchair. patient verbalized undertanding ot use call light to get up or for any needs.
--- NOTE | 2024-09-24 12:10 | PC.NURSE ---
patient called out to get back in bed due to being uncomfortable. he also requested to urinate agian, patient was aggreable to use a purewick due to frequent urination. he was placed back in the bed at this time
--- NOTE | 2024-09-24 12:15 | PC.NURSE ---
patient called out to get out of bed and sit in chair again, provider kelechi notified staff that patient was wanting up we explained that we just placed purewick on patient due to frequent urination and wanting to go from chair to bed and we were entireley too busy to be doing that he insisted we get patient to chair and explained to patient himself that this was the last time. i was not present on this move, however rounded on patient after and he was in wheelchair, wheels locked, call light in reach.
--- NOTE | 2024-09-24 12:30 | PC.NURSE ---
Pt seen standing from wheelchair when he fell forward tripping over the foot rests on the wheelchair. pt fell face forward, no LOC. pt ended with multiple skin tears to his RFA and a LAC in his R eyebrow. Staff bedside immediately, CCollar placed. Pt A&OX4. pt lifted by staff back into the stretcher. bedside immediately after the fall.
--- NOTE | 2024-09-24 12:36 | CT_ITS ---
PROCEDURE INFORMATION: Exam: CT Head With Contrast Exam date and time: 09/24/2024 12:45 PM Age: 78 years old Clinical indication: Injury or trauma; Fall; Laceration; Consciousness not specified; Forehead; Additional info: Mechanical fall, head lac TECHNIQUE: Imaging protocol: Computed tomography of the head with intravenous contrast. Radiation optimization: All CT scans at this facility use at least one of these dose optimization techniques: automated exposure control; mA and/or kV adjustment per patient size (includes targeted exams where dose is matched to clinical indication); or iterative reconstruction. Contrast was administered hour earlier for a CT chest/abdomen/pelvis angiogram. COMPARISON: CT HEAD/BRAIN WO CON 09/24/2024 11:02 AM FINDINGS: Brain: Prominent posterior extra-axial space involving right posterior fossa questionably an arachnoid cyst. No intracranial hemorrhage. No midline shift. Extensive atrophy and extensive confluent small vessel ischemic disease. Precontrast study was performed 1 hour 40 minutes earlier. Cerebral ventricles: Unremarkable. No ventriculomegaly. Bones/joints: Unremarkable. No acute fracture. Paranasal sinuses: Visualized sinuses are unremarkable. No fluid levels. Mastoid air cells: Visualized mastoid air cells are well aerated. Soft tissues: Questionable scalp injury noted right lateral periorbital region. Other findings: Increased density throughout the vascularity consistent with a prior injection for a CT angiogram abdomen/pelvis and chest 1-1/2 hours earlier. IMPRESSION: Postcontrast imaging of the brain demonstrates no intracranial abnormality. Right-sided suspected periorbital scalp injury.
--- NOTE | 2024-09-24 12:36 | CT_ITS ---
PROCEDURE INFORMATION: Exam: CT Cervical Spine Without Contrast Exam date and time: 09/24/2024 12:47 PM Age: 78 years old Clinical indication: Injury or trauma; Fall; Laceration; Not specified; Additional info: Mechanical fall, head laceration TECHNIQUE: Imaging protocol: Computed tomography of the cervical spine without contrast. Radiation optimization: All CT scans at this facility use at least one of these dose optimization techniques: automated exposure control; mA and/or kV adjustment per patient size (includes targeted exams where dose is matched to clinical indication); or iterative reconstruction. COMPARISON: CT CERVICAL SPINE WO CON 09/24/2024 11:04 AM images only, no report. FINDINGS: No change since 1 hour 40 minutes earlier. Stable multilevel arthritis. Stable discogenic disease seen via CT. IMPRESSION: No fracture has developed since the previous exam.
--- NOTE | 2024-09-24 12:45 | CT_ITS ---
PROCEDURE INFORMATION: Exam: CT Maxillofacial Without Contrast Exam date and time: 09/24/2024 12:49 PM Age: 78 years old Clinical indication: Injury or trauma; Fall; Laceration; Forehead; Additional info: Fall, laceration above L eye TECHNIQUE: Imaging protocol: Computed tomography of the face without contrast. Radiation optimization: All CT scans at this facility use at least one of these dose optimization techniques: automated exposure control; mA and/or kV adjustment per patient size (includes targeted exams where dose is matched to clinical indication); or iterative reconstruction. COMPARISON: CT HEAD/BRAIN WO CON 09/24/2024 12:45 PM FINDINGS: Paranasal sinuses: Sinus disease is noted mildly within the ethmoidal air cells. Sinus disease also mild in the frontal sinuses bilaterally. Orbital cavities: Orbits are normal. Globes are unremarkable. Bones: No acute fracture. Soft tissues: Right lateral periorbital soft tissue injury/mild hemorrhage. IMPRESSION: 1. Left lateral supraorbital scalp injury. 2. Mild sinus disease. 3. No fracture.
--- NOTE | 2024-09-24 12:45 | PC.NURSE ---
I notified the pts son of his fall.
[2024-09-24 13:04] LABS: HIV Combo NEGATIVE (Negative)
[2024-09-24] MEDS: TET/DIPHTH/PERT-ADULT 0.5ML SYRINGE 0.5 ML IM (13:16)
--- NOTE | 2024-09-24 13:45 | PC.NURSE ---
I spoke with Dinah in PT notifying her of a PT consult.
[2024-09-24] MEDS: BACITRACIN OINT 0.9GM UDP 1 EACH TP (13:56)
--- NOTE | 2024-09-24 14:28 | PC.NURSE ---
1408 entered wrong pt discharge. pt reentered into [facility] system and switched back to room 10.
--- NOTE | 2024-09-24 14:58 | PC.NURSE ---
I called and spoke with Dinah in PT. She state Jonathan is aware of the consult but in with another pt at this time.
[2024-09-24 15:10] LABS: Microscopic, Urine URINE MICROSCOPIC (MICROSCOPIC)
--- NOTE | 2024-09-24 15:12 | SW/DCPLANNER ---
Spoke with patient in the ED about going to placement and patient stated that he isnt going anywhere besides home and thats the only place he is going. ED Dr went in and spoke with patient and discussed the risk of patient going home and patient stated that he is going to sign out [employer]
[2024-09-24 15:34] LABS: Appearance,Urine CLEAR (Clear); Bilirubin,Urine Negative (Negative); Blood, Urine 1+ (Negative); Color,Urine YELLOW (Yellow); Glucose,Urine (UA) 3+ (Negative); Ketones,Urine TRACE (Negative); Leukocyte Esterase,Urine Negative (Negative); Nitrate,Urine Negative (Negative); PH,Urine 6.5 (5.0-8.5); Protein,Urine 3+ (Negative); Urobilinogen,Urine 0.2 EU/dl (0.2)
--- NOTE | 2024-09-24 15:41 | PC.NURSE ---
provider spoke with patient. patient chose to leave against medical advice. patient discharged home with son POV
== END 2024-09-24 15:39 | disposition left against medical advice (07) ==
PROVIDERS: Emergency Provider Emergency Medicine; PCP Internal Medicine
DX: R07.89 Other chest pain (principal); S01.81XA Laceration without foreign body of other part of head, initial encounter; S41.119A Laceration without foreign body of unspecified upper arm, initial encounter; R53.81 Other malaise; R07.81 Pleurodynia; R29.6 Repeated falls
CPT/HCPCS: 70450; 70486; 71275; 72125; 74174; 80053; 81001; 85025; 85610; 87389; 90471; 90715; 96374; 99285; J2270; Q9967